=== PATIENT | female | born 1950 | race Caucasian/White ===

== ENCOUNTER 2017-03-22 21:32 | Emergency (ER) | payer MEDICARE, OTHER ==
[2017-03-22 23:08] LABS: HEMOGLOBIN 15.1 gm/dl (12.3-15.3); RED BLOOD COUNT 4.72 M/UL (4.00-5.10); WHITE BLOOD COUNT 6.2 K/UL (4.5-11.0)
[2017-03-22 23:12] LABS: BUN/CREATININE RATIO 14 (0-10)
== END 2017-03-23 01:33 | disposition home or self-care (01) ==
LOC: ER1 21:32
PROVIDERS: Family Medicine
DX: H81.10 Benign paroxysmal vertigo, unspecified ear (principal); E03.9 Hypothyroidism, unspecified; F17.200 Nicotine dependence, unspecified, uncomplicated; Z79.899 Other long term (current) drug therapy
CPT/HCPCS: 36415; 70450; 80053; 82550; 82553; 83874; 84443; 84484; 85025; 93005; 96374; 99284; J2405

== ENCOUNTER → 2020-12-02 | Outpatient (CLI) | payer MEDICARE, OTHER ==
[~2020-12-02] MED LIST: MOBIC15 MG PO; [UNRECOGNIZED DRUG - SUPPLY]
== END ==
LOC: EXRD 09:18
DX: K74.60 Unspecified cirrhosis of liver (principal)
CPT/HCPCS: 76705

== ENCOUNTER → 2021-03-23 | Outpatient (CLI) | payer MEDICARE, OTHER | LOC: KOH-I 14:10 | DX: M25.521 Pain in right elbow (principal); M19.021 Primary osteoarthritis, right elbow; Z98.890 Other specified postprocedural states | CPT/HCPCS: 73070 ==

== ENCOUNTER → 2021-04-11 | Outpatient (CLI) | payer MEDICARE, OTHER | LOC: US 13:30 | DX: E03.9 Hypothyroidism, unspecified (principal); E04.2 Nontoxic multinodular goiter | CPT/HCPCS: 76536 ==

== ENCOUNTER → 2021-04-26 | Outpatient (CLI) | payer MEDICARE, OTHER | LOC: US 08:02 | DX: E04.1 Nontoxic single thyroid nodule (principal) ==

== ENCOUNTER → 2021-05-04 | Outpatient (CLI) | payer MEDICARE ==
[~2021-05-04] MED LIST changes: +FLORASTOR250 MG PO
[2021-05-04 10:49] LABS: HEMOGLOBIN 11.6 gm/dl (12.3-15.3); RED BLOOD COUNT 4.59 M/UL (4.00-5.10); WHITE BLOOD COUNT 4.8 K/UL (4.5-11.0)
[2021-05-05 11:16] LABS: HBSAG SCREEN Negative (Negative); HCV ANTIBODY <0.1 (0.0-0.9); HEPATITIS B SURF AB QUANT <3.1 mIU/mL (Immunity>9.9)
== END ==
LOC: LAB 09:49
PROVIDERS: Internal Medicine
DX: K74.60 Unspecified cirrhosis of liver (principal)
CPT/HCPCS: 36415; 80053; 85025; 85610; 86317; 86709; 86803; 87340

== ENCOUNTER 2021-07-02 16:45 | Emergency (ER) | payer MEDICARE, MEDICAID ==
[~2021-07-02 16:45] MED LIST changes: -FLORASTOR250 MG PO
== END 2021-07-02 21:11 | disposition home or self-care (01) ==
LOC: ER1 16:45
DX: Z23 Encounter for immunization (principal); U07.1 COVID-19; I10 Essential (primary) hypertension; E03.9 Hypothyroidism, unspecified
CPT/HCPCS: 99283; M0243; U0002

== ENCOUNTER 2021-08-01 11:46 | Emergency (ER) | payer MEDICARE, MEDICAID ==
[2021-08-01 13:54] LABS: RED BLOOD COUNT 4.93 M/UL (4.00-5.10); WHITE BLOOD COUNT 6.9 K/UL (4.5-11.0)
[2021-08-01] MEDS ORDERED: FLORASTOR250 MG PO (14:33)
== END 2021-08-01 15:12 | disposition home or self-care (01) ==
LOC: ER1 11:46
PROVIDERS: Emergency Medicine
DX: R19.7 Diarrhea, unspecified (principal); E11.9 Type 2 diabetes mellitus without complications; I10 Essential (primary) hypertension; F17.210 Nicotine dependence, cigarettes, uncomplicated; Z88.1 Allergy status to other antibiotic agents; Z88.0 Allergy status to penicillin; Z88.2 Allergy status to sulfonamides
CPT/HCPCS: 80053; 85025; 99284

== ENCOUNTER 2021-09-25 13:21 | Inpatient (IN) | payer MEDICARE, OTHER ==
[~2021-09-25] VITALS: Ht 170.2 cm; Wt 101.8 kg
[~2021-09-25 13:21] MED LIST changes: +FLORASTOR250 MG PO
[2021-09-25 13:57] LABS: RED BLOOD COUNT 5.09 M/UL (4.00-5.10); WHITE BLOOD COUNT 4.8 K/UL (4.5-11.0)
[2021-09-25 14:12] LABS: BUN/CREATININE RATIO 10 (0-10)
[2021-09-25] MEDS ORDERED: GABAPENTIN800 MG PO (23:00)
[2021-09-25] MEDS ORDERED: ONDANSETRON ODT4 MG PO (23:01)
[2021-09-25] MEDS ORDERED: PROTONIX 40 MG40 M1 PO (23:01)
[2021-09-25] MEDS ORDERED: AMLODIPINE BESY10 MG PO (23:01)
[2021-09-25] MEDS ORDERED: HYDROCODON-ACE1 EAC6 PO (23:01)
[2021-09-25] MEDS ORDERED: GLUCOPHAGE 500500 MG PO (23:01)
[2021-09-25] MEDS ORDERED: LISINOPRIL40 MG PO (23:02)
[2021-09-25] MEDS ORDERED: CELEXA 20MG TAB20 MG PO (23:02)
[2021-09-25] MEDS ORDERED: TRAZODONE HCL100 MG PO (23:02)
[2021-09-25] MEDS ORDERED: CETIRIZINE HCL10 MG PO (23:03)
[2021-09-25] MEDS ORDERED: SYMBICORT 16010.2 GM INH (23:04)
[2021-09-25] MEDS ORDERED: PROAIR HFA8.5 GM INH (23:04)
[2021-09-25] MEDS ORDERED: LEVOTHYROXINE200 MC1 PO (23:04)
[2021-09-26 06:20] LABS: RED BLOOD COUNT 4.66 M/UL (4.00-5.10)
[2021-09-26 06:21] LABS: WHITE BLOOD COUNT 3.4 K/UL (4.5-11.0)
[2021-09-26 06:28] LABS: BUN/CREATININE RATIO 11 (0-10)
[2021-09-26 20:20] LABS: LDH, BODY FLUID 121 U/L; TOTAL PROTEIN, BODY FLUID 2.8 gm/dL
[2021-09-26 20:23] LABS: BODY FLUID SOURCE PLEURAL; RBC (AUTOMATED) 500 (0-100000); WBC (AUTOMATED) 360 (0-500)
[2021-09-26 20:24] LABS: MONONUCLEAR CELLS 87.2 (75-100); POLYMORPHONUCLEAR % 12.8 (0-25)
--- NOTE | 2021-09-27 01:26 | NUR ---
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 PLACED THEM IN THE ALCLOVE UNDER TV AND HAVE AWAITING HIM FOR THE AM
[2021-09-27 07:04] LABS: HEMOGLOBIN 11.1 gm/dl (12.3-15.3); RED BLOOD COUNT 4.6 M/UL (4.00-5.10)
[2021-09-27 07:05] LABS: WHITE BLOOD COUNT 5.4 K/UL (4.5-11.0)
[2021-09-28 02:49] LABS: HEMOGLOBIN 10.4 gm/dl (12.3-15.3); RED BLOOD COUNT 4.35 M/UL (4.00-5.10); WHITE BLOOD COUNT 5.7 K/UL (4.5-11.0)
--- NOTE | 2021-09-28 14:24 | NUR ---
DR. RYAN, DOLL EYE SETTER PLACED CHEST TUBE WITH 1700CC OF CLEAR TANNISH FLUID OUTPUT. DR. RYAN STATES CLAMP TUBE AND LEAVE CLAMPED UNTIL HE STATES TO UNCLAMP STAT CHEST XRAY DONE.
[2021-09-29 03:08] LABS: HEMOGLOBIN 10.8 gm/dl (12.3-15.3); RED BLOOD COUNT 4.58 M/UL (4.00-5.10); WHITE BLOOD COUNT 6.1 K/UL (4.5-11.0)
[2021-09-29 04:12] LABS: BUN/CREATININE RATIO 23 (0-10)
[2021-09-30 06:55] LABS: HEMOGLOBIN 11.3 gm/dl (12.3-15.3); RED BLOOD COUNT 4.82 M/UL (4.00-5.10); WHITE BLOOD COUNT 4.9 K/UL (4.5-11.0)
--- NOTE | 2021-09-30 14:29 | NUR ---
Patient's chest tube was pulled at approximately 1100 by shirt hemmer. Wound was covered with 4x4 gauze and tape. No complications noted.
[2021-10-01 07:52] LABS: HEMOGLOBIN 11.1 gm/dl (12.3-15.3); RED BLOOD COUNT 4.8 M/UL (4.00-5.10); WHITE BLOOD COUNT 5.6 K/UL (4.5-11.0)
[2021-10-01] MEDS ORDERED: IPRAT-ALBUT 0.5-3 ML NEB (11:30)
[2021-10-01] MEDS ORDERED: NICOTINE PATCH1 EAC2 TOP (11:30)
[2021-10-01] MEDS ORDERED: MEDROL DOSEPAK 24 MG PO (11:30)
[2021-10-01] MEDS ORDERED: OMNICEF 300 MG300 MG PO (11:30)
[2021-10-01] MEDS ORDERED: K-TAB ER10 MEQ PO (11:53)
[2021-10-01] MEDS ORDERED: FUROSEMIDE40 MG PO (11:53)
[2021-10-01] MEDS ORDERED: SPIRIVA18 MCG INH (11:59)
[2021-10-01] MEDS ORDERED: CHRONULAC20 GM/30 M PO (11:59)
[2021-10-01] MEDS ORDERED: ALDACTONE25 MG PO (12:15)
== END 2021-10-01 09:30 | disposition home or self-care (01) | DRG 190 ==
LOC: ER1 13:21 → CDU 20:26 → M/S 20:26
PROVIDERS: Emergency Medicine; Internal Medicine; Physician Assistant; ADMIT Internal Medicine
PROC: B24BZZZ Ultrasonography of Heart with Aorta (ICD-10-PCS; principal; 2021-09-26)
PROC: 5A0945A Assistance with Respiratory Ventilation, 24-96 Consecutive Hours, High Flow/Velocity Cannula (ICD-10-PCS; 2021-09-26)
PROC: 0W9B30Z Drainage of Left Pleural Cavity with Drainage Device, Percutaneous Approach (ICD-10-PCS; 2021-09-26)
PROC: BB4BZZZ Ultrasonography of Pleura (ICD-10-PCS; 2021-09-26)
PROC: 0W9930Z Drainage of Right Pleural Cavity with Drainage Device, Percutaneous Approach (ICD-10-PCS; 2021-09-28)
PROC: BB4BZZZ Ultrasonography of Pleura (ICD-10-PCS; 2021-09-28)
DX: J44.1 Chronic obstructive pulmonary disease with (acute) exacerbation (principal); J96.21 Acute and chronic respiratory failure with hypoxia; Z20.822 Contact with and (suspected) exposure to COVID-19; J90 Pleural effusion, not elsewhere classified; K76.6 Portal hypertension; J98.11 Atelectasis; R18.8 Other ascites; D61.818 Other pancytopenia; J93.9 Pneumothorax, unspecified; E66.9 Obesity, unspecified; E03.9 Hypothyroidism, unspecified; E11.9 Type 2 diabetes mellitus without complications; I07.1 Rheumatic tricuspid insufficiency; I27.20 Pulmonary hypertension, unspecified; F32.A Depression, unspecified; I25.10 Atherosclerotic heart disease of native coronary artery without angina pectoris; K74.60 Unspecified cirrhosis of liver; F17.210 Nicotine dependence, cigarettes, uncomplicated; Z99.81 Dependence on supplemental oxygen; Z95.5 Presence of coronary angioplasty implant and graft; Z88.1 Allergy status to other antibiotic agents; Z88.0 Allergy status to penicillin; Z88.2 Allergy status to sulfonamides; Z88.8 Allergy status to other drugs, medicaments and biological substances; Z90.49 Acquired absence of other specified parts of digestive tract; Z90.710 Acquired absence of both cervix and uterus; Z68.35 Body mass index [BMI] 35.0-35.9, adult; Z79.4 Long term (current) use of insulin
CPT/HCPCS: ECHO; 0240U; 36415; 36600; 71045; 71046; 80048; 80053; 82150; 82550; 82553; 82803; 82945; 82962; 83615; 83690; 83874; 83880; 83986; 84157; 84484; 85025; 85027; 85610; 85730; 87015; 87070; 87075; 87116; 89051; 93005; 93306; 94640; 94664; 94760; 96374; 96375; 97161; 99285; C1729; J0456; J0696; J1650; J1940; J2060; J2920; J2930; J7030; Q9967

== ENCOUNTER → 2021-10-10 | Outpatient (CLI) | payer MEDICARE, OTHER ==
[~2021-10-10] MED LIST changes: +ALDACTONE25 MG PO; +AMLODIPINE BESY10 MG PO; +CELEXA 20MG TAB20 MG PO; +CETIRIZINE HCL10 MG PO; +CHRONULAC20 GM/30 M PO; +FUROSEMIDE40 MG PO; +GABAPENTIN800 MG PO; +GLUCOPHAGE 500500 MG PO; +HYDROCODON-ACE1 EAC6 PO; +IPRAT-ALBUT 0.5-3 ML NEB; +K-TAB ER10 MEQ PO; +LEVOTHYROXINE200 MC1 PO; +LISINOPRIL40 MG PO; +MEDROL DOSEPAK 24 MG PO; +NICOTINE PATCH1 EAC2 TOP; +OMNICEF 300 MG300 MG PO; +ONDANSETRON ODT4 MG PO; +PROAIR HFA8.5 GM INH; +PROTONIX 40 MG40 M1 PO; +SPIRIVA18 MCG INH; +SYMBICORT 16010.2 GM INH; +TRAZODONE HCL100 MG PO
== END ==
LOC: LAB 11:10
PROVIDERS: Internal Medicine
DX: J90 Pleural effusion, not elsewhere classified (principal); R41.0 Disorientation, unspecified
CPT/HCPCS: 36415; 71046; 80053; 82140

== ENCOUNTER 2021-12-10 12:43 | Emergency (ER) | payer MEDICARE, OTHER ==
[2021-12-10 13:45] LABS: HEMOGLOBIN 10.8 gm/dl (12.3-15.3); RED BLOOD COUNT 4.39 M/UL (4.00-5.10); WHITE BLOOD COUNT 8.3 K/UL (4.5-11.0)
[2021-12-10 14:06] LABS: BUN/CREATININE RATIO 14 (0-10)
[2021-12-10] MEDS ORDERED: DOXYCYCLINE HY100 M2 PO (18:10)
[2021-12-10] MEDS ORDERED: PREDNISONE 20 M20 MG PO (18:10)
== END 2021-12-10 18:15 | disposition home or self-care (01) ==
LOC: ER1 12:43
PROVIDERS: Student in an Organized Health Care Education/Training Program
DX: J44.9 Chronic obstructive pulmonary disease, unspecified (principal); I25.10 Atherosclerotic heart disease of native coronary artery without angina pectoris; I10 Essential (primary) hypertension; F17.210 Nicotine dependence, cigarettes, uncomplicated; Z20.822 Contact with and (suspected) exposure to COVID-19
CPT/HCPCS: 71045; 80048; 82550; 82553; 84484; 85025; 93005; 94664; 99285; Q9967; U0002

== ENCOUNTER → 2022-01-04 | Outpatient (CLI) | payer MEDICARE, OTHER ==
[~2022-01-04] MED LIST changes: +DOXYCYCLINE HY100 M2 PO; +PREDNISONE 20 M20 MG PO
== END ==
LOC: HEART 5 12:58
DX: R06.00 Dyspnea, unspecified (principal)
CPT/HCPCS: 94060; 94729